=== PATIENT | female | born 2000 | race Caucasian/White ===

== ENCOUNTER 2020-10-16 16:31 | Observation (INO) | payer OTHER ==
[~2020-10-16 16:31] MED LIST: BACTRIM DS TAB1 EACH PO; KEFLEX CAP 500500 MG PO; NORCO 5-325 TA1 EACH PO
[2020-10-16 19:18] LABS: HEMOGLOBIN 10.5 gm/dl (12.3-15.3); RED BLOOD COUNT 3.71 M/UL (4.00-5.10); WHITE BLOOD COUNT 10.6 K/UL (4.5-11.0)
== END 2020-10-17 09:43 | disposition home or self-care (01) ==
LOC: GENOP 16:31 → OB 18:30
PROVIDERS: ADMIT Obstetrics & Gynecology
DX: O61.1 Failed instrumental induction of labor (principal); O99.323 Drug use complicating pregnancy, third trimester; F11.20 Opioid dependence, uncomplicated; O99.343 Other mental disorders complicating pregnancy, third trimester; F41.9 Anxiety disorder, unspecified; F32.9 Major depressive disorder, single episode, unspecified; Z3A.39 39 weeks gestation of pregnancy; Z79.891 Long term (current) use of opiate analgesic; Z20.822 Contact with and (suspected) exposure to COVID-19
CPT/HCPCS: 36415; 81001; 85025; G0378; G0463; U0003

== ENCOUNTER 2020-10-20 15:49 | Inpatient (IN) | payer OTHER ==
[~2020-10-20] VITALS: Ht 160 cm; Wt 65.8 kg
[2020-10-20 16:48] LABS: HEMOGLOBIN 10.6 gm/dl (12.3-15.3); RED BLOOD COUNT 3.78 M/UL (4.00-5.10); WHITE BLOOD COUNT 12.3 K/UL (4.5-11.0)
[2020-10-20] MEDS ORDERED: SUBOXONE 2 MG-1 EACH SL (16:51)
[2020-10-21] MEDS ORDERED: DOCUSATE SODIU250 MG PO (16:12)
[2020-10-21] MEDS ORDERED: FEROSUL325 MG PO (16:12)
[2020-10-21] MEDS ORDERED: IBUPROFEN600 MG PO (16:12)
[2020-10-22 05:54] LABS: HEMOGLOBIN 9.5 gm/dl (12.3-15.3)
== END 2020-10-23 15:27 | disposition home or self-care (01) | DRG 806 ==
LOC: GENOP 15:49 → OB 16:12 → GENOP 16:13 → OB 10-21 15:16
PROVIDERS: Obstetrics & Gynecology; ADMIT Obstetrics & Gynecology
PROC: 0U7C7ZZ Dilation of Cervix, Via Natural or Artificial Opening (ICD-10-PCS; 2020-10-20)
PROC: 4A1HXCZ Monitoring of Products of Conception, Cardiac Rate, External Approach (ICD-10-PCS; 2020-10-20)
PROC: 10E0XZZ Delivery of Products of Conception, External Approach (ICD-10-PCS; principal; 2020-10-21)
PROC: 10907ZC Drainage of Amniotic Fluid, Therapeutic from Products of Conception, Via Natural or Artificial Opening (ICD-10-PCS; 2020-10-21)
PROC: 0UQMXZZ Repair Vulva, External Approach (ICD-10-PCS; 2020-10-21)
PROC: 3E033VJ Introduction of Other Hormone into Peripheral Vein, Percutaneous Approach (ICD-10-PCS; 2020-10-21)
DX: O99.324 Drug use complicating childbirth (principal); F11.20 Opioid dependence, uncomplicated; Z37.0 Single live birth; Z3A.39 39 weeks gestation of pregnancy; Z20.822 Contact with and (suspected) exposure to COVID-19; O99.334 Smoking (tobacco) complicating childbirth; O99.344 Other mental disorders complicating childbirth; F43.10 Post-traumatic stress disorder, unspecified; F17.210 Nicotine dependence, cigarettes, uncomplicated; F41.1 Generalized anxiety disorder; F32.9 Major depressive disorder, single episode, unspecified; O70.0 First degree perineal laceration during delivery
CPT/HCPCS: 36415; 51702; 80307; 81001; 82800; 85014; 85018; 85025; 90471; 90707; 90715; J1200; J2590; J2795; J3010; J7120; U0002